=== PATIENT | female | born 1980 | race Caucasian/White ===

== ENCOUNTER 2018-02-04 05:19 | Day surgery (SDC) | payer OTHER ==
[2018-01-07 13:40] VITALS: BMI 29.5
[2018-02-04] MEDS ORDERED: MIDAZOLAM HCL 2 MG/2 ML SINGLE DOSE VIAL ONE ×2 (07:31)
[2018-02-04] MEDS ORDERED: ROPIVACAINE HCL 0.5% 30ML VIAL ONE (07:34)
[2018-02-04] MEDS ORDERED: BUPIVACAINE HCL/PF 0.25% (2.5MG/ML) 10 ML VIAL ONE (07:34)
[2018-02-04] MEDS ORDERED: DEXAMETHASONE SOD PHOSPHATE 4 MG/1 ML VIAL ONE (07:34)
--- NOTE | 2018-02-04 08:08 | HP ---
[facility]ellite [facility] - Chief Complaint Chief Complaint: left knee pain History Source: Patient - Past Medical History Allergies/Adverse Reactions: Allergies Allergy/AdvReac Type Severity Reaction Status Date / Time No Known Allergies Allergy Verified 02/04/18 06:31 ...LMP: 01/01/18 - Current Medications Current Medications: Home Medications Medication Instructions Recorded Acetaminophen [Tylenol] 650 mg PO BID 01/07/18 Satellite Physical Exam - Physical Examination Vital Signs: Vital Signs Period Temp Pulse Resp BP Sys/[place] Pulse Ox Last 24 Hr 98.3 F 71 16 113/74 99 Extremities: Other (+ Ronnie's) Satellite Impression/Plan - Impression/Plan Impression: L ACL TEAR Operative Procedure: L ACL RECON WITH ALLOGRAFT Date to be Performed: 02/04/18
[2018-02-04] MEDS ORDERED: SUCCINYLCHOLINE CHLORIDE 200 MG/10 ML VIAL ONE (08:23)
[2018-02-04] MEDS ORDERED: ceFAZolin SODIUM 1 GM VIAL IVPB ONE ×2 (08:28→08:34)
[2018-02-04] MEDS ORDERED: ceFAZolin SODIUM 1 GM VIAL ONE (08:33)
[2018-02-04] MEDS ORDERED: oxyCODONE HCL 5 MG TABLET PO PRN (09:32)
[2018-02-04] MEDS ORDERED: PROMETHAZINE HCL 25 MG/1 ML VIAL IVPUSH PRN (09:32)
[2018-02-04] MEDS ORDERED: ONDANSETRON 4 MG/2 ML VIAL IVPUSH PRN (09:32)
[2018-02-04] MEDS ORDERED: LACTATED RINGERS SOLUTION 1,000 ML IV SCH (09:45)
--- NOTE | 2018-02-04 09:59 | OP ---
Operative Note - Note: Operative Date: 02/04/18 [facility] Pre-Operative Diagnosis: left knee acl rupture Operation: left knee arthroscopy with ACL reconstruction using graftlink allograft Post-Operative Diagnosis: Same as Pre-op Surgeon: Chandler Santos Business Process Analyst: Rajesh Estrella Anesthesiologist/MICA INSPECTOR: Vita Rizzo MD Anesthesia: General, Local Specimens Removed: shavings Estimated Blood Loss (mls): 5 Operative Report Dictated: Yes
[2018-02-04] MEDS ORDERED: oxyCODONE HCL 5 MG TABLET PO ONE ×2 (11:32→12:40)
[2018-02-04] MEDS ORDERED: oxyCODONE HCL 5 MG TABLET ONE ×2 (11:34→12:39)
--- NOTE | 2018-02-04 11:55 | SPEC ---
DATE OF OPERATION: 02/04/2018 PREOPERATIVE DIAGNOSIS: Left anterior cruciate ligament rupture. POSTOPERATIVE DIAGNOSIS: Left anterior cruciate ligament rupture. PROCEDURE: Left anterior cruciate ligament reconstruction with GraftLink. SURGICAL ATTENDING: Chandler Santos MD CHIEF ENGINEERING DIVISION: KISHOR Espinoza ANESTHESIA: Regional and general. CLOSURE: A 10-mm Arthrex GraftLink with appropriate buttons and 3-0 nylon for skin. ESTIMATED BLOOD LOSS: Negligible. COMPLICATIONS: None. CONDITION: To recovery room stable condition. DESCRIPTION OF OPERATIVE PROCEDURE: Patient taken to the operating room on February 04, 2018. Spinal and regional anesthesia was administered by the anesthesiologist. IV Kefzol was administered prophylactically prior to the case. The left lower extremity was prepped and draped in the usual sterile fashion. The superomedial and medial and lateral infrapatellar portal sites were made with a 15 blade followed by a blunt trocar. The outflow portal was superomedially. The scope portal was the inferolateral and the working portal was the inferomedial portal. The scope was placed in the inferolateral portal and up in the suprapatellar pouch. Pouch was visualized to be clean. The medial and lateral gutters were visualized to be clean. The undersurface of the patella and trochlea were visualized to be intact. With valgus stress on the knee, the medial compartment was entered and the medial meniscus was visualized, probed and found to be intact. The medial femoral condyle was run and found to be intact as was the medial tibial plateau. In the figure-4 position, the lateral compartment was entered. The lateral meniscus was visualized, probed, found to be intact. The lateral femoral condyle was run and found to be intact as was the lateral tibial plateau. At 90 degrees, the ACL was visualized and found to be completely torn and shredded with a stump anteriorly. This was debrided using the shaver. A notchplasty was then performed, again insufficient width and height of the notch to perform the procedure. The PCL was visualized to be intact. Using the [id number] guide and an inside-out reaming with a flip cutter, a 10-mm tunnel was made in the posterior aspect of the notch with a depth of approximately 25 mm, preserving the outer cortex. Through this tunnel was passed a shuttle suture made of an Arthrex FiberStick from outside in, exiting the portal. Next, using a tibial guide, a tibial tunnel was made just anterior to the PCL to a depth of about 30 mm inside the tibia, preserving the lateral cortex. This was done by an inside-out technique using a flip cutter as well. Through this tunnel as well was passed a FiberStick suture which was used as a shuttling suture exiting the portal as well. The GraftLink graft was prepared on the back table with a button in place and the appropriate markings on the graft. Two shuttle sutures were used to pull the graft into the knee through the inferomedial portal, one limb up in the femoral tunnel, one limb down the tibial tunnel. The femoral tunnel button was hooked on the lateral cortex. The knee was cycled. The graft was toggled up into a depth of at least 20 mm. With the knee in extension, the tibial graft was toggled using a button as well on the anteromedial cortex. At this time, the knee was cycled through, going from full extension to full flexion with excellent tension of the ACL throughout and good crossing of the PCL. Sutures were cut snug. The graft was ensured to not impede on any part of the notch and throughout the range of motion found to have good tension. The incisions were all closed with 3-0 nylon interrupted horizontal mattress sutures. A sterile pressure dressing and a knee immobilizer were applied. Patient awakened from anesthesia and transferred to recovery in stable condition. William [id number]
[2018-02-04 12:46] VITALS: BP 114/65; PULSE 95; TEMP 98.3
--- NOTE | 2018-02-05 16:47 | PATH ---
Surgical Pathology Report Patient Name: ZACHARY TAMAYO [facility]. Rec. #: [id number] /Age/Gender: 1980 (Age: 37) / F Account: [id number] Location: [facility] SURGICAL Taken: 02/04/2018 Received: 02/04/2018 Reported: 02/05/2018 Physicians: Chandler Santos M.D. Specimen(s) Received LEFT KNEE SHAVINGS Clinical History Left ACL repair Final Diagnosis KNEE SHAVINGS, LEFT, ACL REPAIR: FRAGMENTS OF CARTILAGE, DENSE FIBROCONNECTIVE TISSUE, ADIPOSE TISSUE, BONE, AND SYNOVIUM. Electronically Signed Luciana Devine M.D. Gross Description Received in formalin, labeled "left knee shavings," is a 5.0 x 3.6 x 0.4 cm. aggregate of reyes-yellow soft tissue fragments. A collections representative portion is submitted in one cassette. 02/04/201802/04/2018
== END 2018-02-04 13:20 | disposition home or self-care (01) ==
LOC: JASU-SURG 05:19
PROVIDERS: ATTEND Orthopaedic Surgery
PROC: 0MQP4ZZ Repair Left Knee Bursa and Ligament, Percutaneous Endoscopic Approach (ICD-10-PCS; principal; 2018-02-04 08:00)
DX: S83.512A Sprain of anterior cruciate ligament of left knee, initial encounter (principal); X58.XXXA Exposure to other specified factors, initial encounter; Y93.9 Activity, unspecified; Y92.9 Unspecified place or not applicable; Y99.9 Unspecified external cause status
CPT/HCPCS: 84703; 88304-TC; 94760